=== PATIENT | female | born 1960 | race Caucasian/White ===

== ENCOUNTER 2019-03-08 19:50 | Emergency (ER) | payer OTHER ==
[~2019-03-08] VITALS: Ht 160 cm; Wt 50.8 kg
[2019-03-08] MEDS ORDERED: Xalatan2.5 ML BOTHEYES (20:23)
== END 2019-03-08 20:37 | disposition home or self-care (01) ==
LOC: ER 19:50
DX: S10.96XA Insect bite of unspecified part of neck, initial encounter (principal); W57.XXXA Bitten or stung by nonvenomous insect and other nonvenomous arthropods, initial encounter; Z79.899 Other long term (current) drug therapy
CPT/HCPCS: 99282

== ENCOUNTER → 2019-12-23 | Outpatient (CLI) | payer OTHER ==
[~2019-12-23] MED LIST: Xalatan2.5 ML BOTHEYES
== END | disposition home or self-care (01) ==
LOC: LAB SHORT 11:39 → PLD 11:39
DX: D48.5 Neoplasm of uncertain behavior of skin (principal)
CPT/HCPCS: 88305

== ENCOUNTER 2024-05-07 08:17 | Day surgery (SDC) | payer OTHER ==
[~2024-05-07] VITALS: Ht 160 cm; Wt 51.8 kg
[2024-05-07] MEDS ORDERED: LEVSOD100 (08:36)
[2024-05-07] MEDS ORDERED: ESTRADIOL1 EAC2 (08:37)
[2024-05-07] MEDS ORDERED: PROG100 (08:37)
[2024-05-07] MEDS ORDERED: TESTOSTERONE60 GM (08:37)
[2024-05-07] MEDS ORDERED: Lactated Ringer's 1,000 ML IV ONE ×2 (08:55→09:16)
[2024-05-07] MEDS ORDERED: propofoL 50 ML IV ONE (08:55)
[2024-05-07 10:47] VITALS: BP 114/72
== END 2024-05-07 10:40 | disposition home or self-care (01) ==
LOC: ORSCSDS 08:17
PROVIDERS: Internal Medicine Gastroenterology
PROC: 0DJD8ZZ Inspection of Lower Intestinal Tract, Via Natural or Artificial Opening Endoscopic (ICD-10-PCS; principal; 2024-05-07 09:30)
DX: Z12.11 Encounter for screening for malignant neoplasm of colon (principal); K57.30 Diverticulosis of large intestine without perforation or abscess without bleeding; K64.8 Other hemorrhoids; E03.9 Hypothyroidism, unspecified; E55.9 Vitamin D deficiency, unspecified; M85.80 Other specified disorders of bone density and structure, unspecified site; Z79.899 Other long term (current) drug therapy
CPT/HCPCS: J2704; J7120